=== PATIENT | female | born 1960 | race Two or more races ===

== ENCOUNTER 2023-07-16 06:55 | Day surgery (SDC) | payer MEDICAID ==
[~2023-07-16] VITALS: Ht 177.8 cm; Wt 87.5 kg
[2023-07-16] VITALS (9 sets, daily range): BP systolic 120–165; BP diastolic 84–102; PULSE 51–59; RESP 14–18; TEMP 97.8; O2SAT 91–95
[~2023-07-16 06:55] MED LIST: DIPH50CA31 PO; FOLI-119 PO; MAGN400T40 PO; METO-158 PO; NALT50TA27 PO
[2023-07-16] MEDS ORDERED: SODIUM CHL 0.9% 50 ML ONE ×2 (07:34→09:09)
[2023-07-16] MEDS ORDERED: VERAPAMIL 2.5MG/ML INJ 2ML VIAL IV ONE (07:34)
[2023-07-16] MEDS ORDERED: LIDOCAINE 2%HCL (LOCAL ANESTH.) INJ 20ML MDV ONE (07:34)
[2023-07-16] MEDS ORDERED: ANGIOMAX 250 MG VIAL IV ONE ×2 (07:34→09:09)
[2023-07-16] MEDS ORDERED: MIDAZOLAM HCL 2MG/2ML 2ml VIAL (1mg/ml) ONE (07:34)
[2023-07-16] MEDS ORDERED: fentaNYL CITRATE 100 MCG/2 ML VL ONE (07:34)
[2023-07-16] MEDS ORDERED: IODIXANOL 320MG/ML 100ML BTL IV ONE (08:22)
[2023-07-16] MEDS ORDERED: HEPARIN SODIUM (PORCINE) 5000 UNITS/ML 1ML VIAL ONE (09:15)
== END 2023-07-16 11:58 | disposition home or self-care (01) ==
LOC: CATH 06:55
PROVIDERS: ATTEND Internal Medicine Cardiovascular Disease
DX: R94.39 Abnormal result of other cardiovascular function study (principal); I25.10 Atherosclerotic heart disease of native coronary artery without angina pectoris; R06.02 Shortness of breath; F41.9 Anxiety disorder, unspecified; F32.9 Major depressive disorder, single episode, unspecified; I10 Essential (primary) hypertension; E03.9 Hypothyroidism, unspecified; Z87.891 Personal history of nicotine dependence; Z98.890 Other specified postprocedural states; Z79.899 Other long term (current) drug therapy; I77.1 Stricture of artery
CPT/HCPCS: 93458; C1725; C1769; C1894; J0583; J1644; J2250; J3010; J7030; Q9967; 99152

== ENCOUNTER 2025-05-02 05:57 | Inpatient (IN) | payer MEDICAID ==
[~2025-05-02] VITALS: Ht 177.8 cm; Wt 98.6 kg
--- NOTE | 2025-05-02 06:26 | ED.PDOC ---
HPI Comments 64 y/o F, with PMHx of HTN presents to the ED for CC of palpitations. Patient states, she has been experiencing palpitations with associated symptoms of shortness of breath x3days. Patient denies chest pain, headache, cough, nausea, vomiting, or headache. No other associated symptoms, modifiers, recent injuries or sick contacts present at this time. Chief Complaint: Palpitations Time Seen by MD: 06:20 Reviewed Notes: Nurses Notes, Medications, Allergies Allergies: Coded Allergies: Acamprosate (Verified Allergy, Severe, 07/16/23) causes welts to patient's skin, per pt Home Meds Reported Medications Diphenhydramine Hcl (BANOPHEN) 50 Mg Cap, 50 MG PO BID for ITCHING, CAP 07/12/23 Naltrexone HCl (Naltrexone Hydrochloride) 50 Mg Tab, 50 MG PO DAILY for ALCOHOLISM, TAB 07/12/23 Folic Acid (Folic Acid) 1 Mg Tab, 0.4 MG PO DAILY for SUPPLEMENT, TAB 07/12/23 Magnesium Oxide (MAGNESIUM OXIDE) 400 Mg Tab, 1 TAB PO DAILY for SUPPLEMENT, #30 TAB 5 Refills 07/12/23 Metoprolol Tartrate (Metoprolol Tartrate) 50 Mg Tab, 50 MG PO BID for HTN for 30 Days, MG 07/12/23 Information Source: Patient Mode of Arrival: Ambulatory Severity: Moderate Timing: Days Duration: Since onset Prehospital treatment: None Onset: At Rest Cardiac Risk Factors: HTN PE Risk Factors: None History of: None Modifying Factors: Nothing Associated Signs and Symptoms: Palpitations Past Medical History PAST MEDICAL HISTORY: HTN Surgical History: Denies all surgeries [employer]OX C[employer]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 History: Denies all 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 Family History Family History: Unknown Social History Smoker: Non-Smoker Alcohol: Denies ETOH Use Drugs: Denies Drug Use Lives In: Home Constitutional: denies: chills, diaphoresis, fatigue, fever, malaise, sweats, weakness, others EENTM: denies: blurred vision, double vision, ear bleeding, ear discharge, ear drainage, ear pain, ear ringing, eye pain, eye redness, hearing loss, mouth pain, mouth swelling, nasal discharge, nose bleeding, nose congestion, nose pain, photophobia, tearing, throat pain, throat swelling, voice changes, others Respiratory: denies: cough, hemoptysis, orthopnea, SOB at rest, shortness of breath, SOB with excertion, stridor, wheezing, others Cardiovascular: reports: palpitations; denies: chest pain, dizzy spells, diaphoresis, Dyspnea on exertion, edema, irregular heart beat, left arm pain, lightheadedness, PND, syncope, others Gastrointestinal: denies: abdomen distended, abdominal pain, blood streaked bowels, constipated, diarrhea, dysphagia, difficulty swallowing, hematemesis, melena, nausea, poor appetite, poor fluid intake, rectal bleeding, rectal pain, vomiting, others Genitourinary: denies: abnormal vagina bleeding, burning, dyspareunia, dysuria, flank pain, frequency, hematuria, incontinence, pain, , vagina d ischarge, urgency, others Neurological: denies: dizziness, fainting, headache, left sided numbness, left sided weakness, numbness, paresthesia, pre-existing deficit, right sided numbness, right sided weakness, seizure, speech problems, tingling, tremors, weakness, others Musculoskeletal: denies: back pain, gout, joint pain, joint swelling, muscle pain, muscle stiffness, neck pain, others Integumetry: denies: bruises, change in color, change in hair/nails, dryness, laceration, lesions, lumps, rash, wounds, others Allergic/Immunocompromised: denies: Difficulty Healing, Frequent Infections, Hives, Itching, others Hematologic/Lymphatic: denies: anemia, blood clots, easy bleeding, easy bruising, swollen glands, others Endocrine: denies: excessive hunger, excessive sweating, excessive thirst, excessive urination, flushing, intolerance to cold, intolerance to heat, unexplained weight gain, unexplained weight loss, others Psychiatric: denies: anxiety, bipolar disorder, depression, hopeless, panic disorder, schizophrenia, sleepless, suicidal, others All Other Systems: Reviewed and Negative Physical Exam General Appearance: Moderate Distress, Obese HEENT: Normal ENT Inspection, Pharynx Normal, TMs Normal Neck: Full Range of Motion, Non-Tender, Normal, Normal Inspection Respiratory: Chest Non-Tender, Lungs Clear, No Accessory Muscle Use, No Respiratory Distress, Normal Breath Sounds Cardiovascular: No Edema, No JVD, No Murmur, No Gallop, Normal Peripheral Pulses, Regular Rate/Rhythm Breast Exam: Deferred Gastrointestinal: No Organomegaly, Non Tender, No Pulsatile Mass, Normal Bowel Sounds, Soft Genitalia: Deferred Pelvic: Deferred Rectal: Deferred Extremities: No calf tenderness, Normal capillary refill, Normal inspection, Normal range of motion, Non-tender, No pedal edema Musculoskeletal : Apperance: Normal Neurologic: Alert, managed care director II-XII nml as Tested, No Motor Deficits, Normal Affect, Normal Mood, No Sensory Deficits Cerebellar Function: Normal Reflexes: Normal Skin: Dry, Normal Color, Warm Peripheral Pulses: 3+ Radial (R), 3+ Radial (L) Lymphatic: No Adenopathy Was a procedure done? Was a procedure done?: No CP Differential Dx Differential Diagnosis: A-fib, A-Flutter, Angina, Anxiety / Panic Attack, Atrial Dysrhythmia, Electrolyte Disorder, Sinus Tachycardia Differential Diagnosis: HTN Essential, HTN Accelerated X-Ray, Labs, Meds, VS Vital Signs Date Time Temp Pulse Resp B/P (MAP) Pulse Ox O2 Delivery O2 Flow Rate FiO2 05/02/25 07:17 98 05/02/25 06:14 109 05/02/25 06:02 127 05/02/25 06:02 98.0 127 14 128/95 (106) 93 98.0 Lab Test 05/02/25 06:44 Range/Units White Blood Count 9.6 4.4-10.8 10^3/uL Red Blood Count 4.46 4.0-5.20 10^6/uL Hemoglobin 16.3 H 12.2-16.2 g/dL Hematocrit 45.3 36.0-46.0 % Mean Corpuscular Volume 101.7 H 80.0-100.0 fL Mean Corpuscular Hemoglobin 36.5 H 28.0-32.0 pg Mean Corpuscular Hemoglobin Concent 35.9 32.0-36.0 g/dL Red Cell Distribution Width 13.9 11.8-14.3 % Platelet Count 326 140-450 10^3/uL Mean Platelet Volume 7.2 6.9-10.8 fL Neutrophils (%) (Auto) 74.7 37.0-80.0 % Lymphocytes (%) (Auto) 16.3 10.0-50.0 % Monocytes (%) (Auto) 6.1 0.0-12.0 % Eosinophils (%) (Auto) 2.4 0.0-7.0 % Basophils (%) (Auto) 0.5 0.0-2.0 % Neutrophils # (Auto) 7.2 1.6-8.6 10 ^3/uL Lymphocytes # (Auto) 1.6 0.4-5.4 10 ^3/uL Monocytes # (Auto) 0.6 0-1.3 10 ^3/uL Eosinophils # (Auto) 0.2 0-0.8 10 ^3/uL Basophils # (Auto) 0 0-0.2 10 ^3/uL Nucleated Red Blood Cells 0.0 % Sodium Level 132 L 136-145 mmol/L Potassium Level 3.1 L 3.5-5.1 mmol/L Chloride Level 93 L 98-107 mmol/L Carbon Dioxide Level 24 20-31 mmol/L Anion Gap 15 5-15 Blood Urea Nitrogen 12 9-23 mg/dL Creatinine 0.92 0.550-1.02 mg/dL Glomerular Filtration Rate Calc 70 >90 mL/min BUN/Creatinine Ratio 13.0 10.0-20.0 Serum Glucose 122 H 74-106 mg/dL Calcium Level 10.8 H 8.7-10.4 mg/dL Troponin I High Sensitivity 3 L </=34 ng/L Patient alert. Tachycardia. Has history of chest pain. Last time they did the angiogram they did not place a stent. EKG reviewed does show sinus tachycardia. Was given aspirin. Was given nitro. Reviewed her previous visit. Explained to the patient. Continue monitoring. [place] [address] Ph: [phone] DIAGNOSTIC IMAGING Diagnostic Imaging Report : [id number] Signed PATIENT: ILIANA ZUNIGA ACCT: [id number] UNIT: [id number] : 1960 LOC: ER ROOM / BED: / AGE / SEX: 64 / F ADM STATUS: REG ER SERVICE 0630 ORDERING PHYSICIAN: EZ JURADO MD PROCEDURE(s): CXRP - CHEST PORTABLE REASON: sob ORDER NUMBER(s): [id number], ACCESSION NUMBER(s): [id number] INDICATION: sob TECHNIQUE: Frontal view of the chest. COMPARISON: None FINDINGS: . The heart and mediastinal contours are grossly unremarkable. There is no evidence of pleural disease. The lungs are clear. The bony structures of the chest are intact without fracture. IMPRESSION: 1. No evidence of acute disease. ATED BY: CHAPINCITO IQBAL MD DICTATED DATE/TIME: 05/02/25713 SIGNED BY: CHAPINCITO IQBAL MD SIGNED DATE/TIME: 05/02/25713 CC: Time of 1ST Reevaluation: 06:50 Reevaluation 1ST: Unchanged Patient Education/Counseling: Diagnosis, Treatment Family Education/Counseling: No Family Present SEPSIS Sepsis Screen Date sepsis recognized/suspect: May 02, 2025 Time Sepsis recognized/suspect: 556 Recent Procedure: No On Antibiotic Therapy: No Respiratory Rate >20: No Heart Rate >90: Yes Temp<36 C (96.8 F) or >38.3 C: No SBP <90 or MAP <65 mmHG: No New Acute Mental Status Change: No Is the patient on CPAP, BIPAP,: No Physician Orders Chest Portable (05/02/25 06:30) Urinalysis (05/02/25 06:30) Troponin-I Hs (05/02/25 07:30) Troponin-I Hs (05/02/25 09:30) Electrocardigram (05/02/25 07:38) Electrocardigram (05/02/25 09:38) Vital Signs Date Time Temp Pulse Resp B/P (MAP) Pulse Ox O2 Delivery O2 Flow Rate FiO2 05/02/25 07:17 98 05/02/25 06:14 109 05/02/25 06:02 127 05/02/25 06:02 98.0 127 14 128/95 (106) 93 98.0 Laboratory Tests Test 05/02/25 06:44 White Blood Count 9.6 10^3/uL (4.4-10.8) Departure 1 Departure Time of Disposition: 06:43 Impression: Primary Impression: Chest pain of unknown etiology Additional Impression: Sinus tachycardia Disposition: ADMITTED INPATIENT Admit to: Med Surg Condition: Guarded Critical Care Note Critical Care Time?: Yes (90 min-critical care time only) Critical care comment: Tachycardia Stability Stability form required: No Heart Score Heart Score: Heart Score Response (Comments) Value History Slightly Suspicious 0 EKG Normal 0 Age 45-64 1 Risk Factors 1 or 2 risk factors 1 Troponin Normal limit 0 Total 2 I personally scribed for EZ JURADO MD ([email or web address]) on 05/02/25 at 06:26. Electronically submitted by Amber Padgett ([email or web address]). I personally scribed for EZ JURADO MD ([email or web address]) on 05/02/25 at 07:32. Electronically submitted by Amber Padgett [email or web address]). EZ JURADO MD May 02, 2025 06:26
[2025-05-02 07:15] LABS: Hematocrit 45.3 % (36.0-46.0); Hemoglobin 16.3 g/dL (12.2-16.2); Mean Corpuscular Hemoglobin 36.5 pg (28.0-32.0); Mean Corpuscular Volume 101.7 fL (80.0-100.0); Nucleated Red Blood Cells % 0.0 %
--- NOTE | 2025-05-02 07:16 | DVH ---
INDICATION: sob TECHNIQUE: Frontal view of the chest. COMPARISON: None FINDINGS: . The heart and mediastinal contours are grossly unremarkable. There is no evidence of pleural disea se. The lungs are clear. The bony structures of the chest are intact without fracture. IMPRESSION: 1. No evidence of acute disease.
[2025-05-02 07:17] LABS: Anion Gap 15 (5-15); Carbon Dioxide 24 mmol/L (20-31)
--- NOTE | 2025-05-02 07:19 | ECG ---
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
[2025-05-02 07:23] LABS: BUN/Creatinine Ratio 13.0 (10.0-20.0); Blood Urea Nitrogen 12 mg/dL (9-23)
[2025-05-02 07:29] LABS: Calcium 10.8 mg/dL (8.7-10.4); Chloride 93 mmol/L (98-107); Glucose 122 mg/dL (74-106); Potassium 3.1 mmol/L (3.5-5.1); Sodium 132 mmol/L (136-145)
[2025-05-02 08:47] LABS: Urine Protein, UAD TRACE (Negative)
[2025-05-02] MEDS: ATORVASTATIN 20 MG TAB PO ONE (10:00)
[2025-05-02] MEDS ORDERED: MORPHINE SULFATE 4 MG/ML SYR/VIAL IV PRN (10:00)
[2025-05-02] MEDS ORDERED: NITROGLYCERIN 0.4 MG SL TAB SL PRN ×2 (10:00)
--- NOTE | 2025-05-02 10:17 | DVHHP2 ---
History of Present Illness Reason for Visit: Palpitations History of Present Illness 64-year-old female past medical history hypertension thyroid disease cardiac catheterization 2-3 years ago it was unremarkable by Dr. Yonis cardenas chief complaint patient comes in state she took her blood pressure every morning since April 30, 2025 she states her blood pressure was fine but she noticed that he stated the heart rate started he increased his started at 1:06 a.m. and in the heart rate was 112. She called the [facility] hotline and they referred her to the ER for evaluation. Patient currently without chest pain she does state she has a difficulty taking in the breath and decreased energy. On my exam patient states no palpitation but she does have mild shortness of the breath when evaluating patient's labs and imaging in ED CBC was unremarkable sodium was found to be 132 potassium was 3.1 glucose was 122 otherwise CMP was unremarkable chest x-ray was unremarkable troponin was negative. Patient states she does drink every evening a glass of vodka with some kind of sweetener she does smoke also by history with these findings we will admit patient ask for Cardiology consult Past Medical History See HPI above Past Surgical History See HPI above Family History Reviewed, non-contributory to the management of this case. Past Social History Patient does drink vodka daily in the evening was juice along with a smoker denies drug use Review of Systems Constitutional: No: Fever, Chills, Sweats, Weakness, Malaise, Other Eyes: No: Pain, Vision change, Conjunctivae inflammation, Eyelid inflammation, Other, Redness ENT: No: Ear pain, Ear discharge, Nose pain, Nose discharge, Nose congestion, Mouth pain, Mouth swelling, Throat pain, Throat swelling, Other Respiratory: Shortness of breath; No: Cough, Dry, SOB with excertion, Wheezing, Hemoptysis, Pleuritic Pain, Sputum, Wheezing, Other Cardiovascular: Palpitations; No: Chest Pain, Orthopnea, Paroxysmal Noc. Dyspnea, Edema, Lt Headedness, Other Gastrointestinal: No: Nausea, Vomiting, Abdominal Pain, Diarrhea, Constipation, Melena, Hematochezia, Other Genitourinary: No Dysuria, No Frequency, No Incontinence, No Hematuria, No Retention, No Other Musculoskeletal: No: other, neck pain, shoulder pain, arm pain, back pain, hand pain, leg pain, foot pain Skin: No: Rash, Lesions, Jaundice, Bruising, Other Neurological: No: Weakness, Numbness, Incoordination, Change in speech, Confusion, Seizures, Other Allergies: Coded Allergies: Acamprosate (Verified Allergy, Severe, 07/16/23) causes welts to patient's skin, per pt Exam Vital Signs Vital Signs Date Time Temp Pulse Resp B/P (MAP) Pulse Ox O2 Delivery O2 Flow Rate FiO2 05/02/25 09:48 98.2 101 16 105/96 (99) 97 98.2 05/02/25 07:35 Room Air General Appearance: Alert, Oriented X3, Cooperative, No acute distress HEENT: Atraumatic, PERRLA, EOMI, Mucous membr. moist/pink Respiratory: Clear to auscultation, Normal air movement Cardiovascular: Regular rate, Normal S1, Normal S2, No murmurs Abdominal: Normal bowel sounds, Soft, No tenderness, No hepatospenomegaly, No masses Extremities: No clubbing, No cyanosis, No edema, Normal pulses, No tenderness/swelling Skin: No rashes, No breakdown, No significant lesion Neuro: Normal gait, Normal speech, Strength at 5/5 X4 ext, Sensation intact, Cranial nerves 3-12 NL Psych/Mental Status: Mental status NL, Mood NL Labs/Xrays Chest x-ray unremarkable I reviewed labs, imaging CT scan abdomen pelvis, EKG and all diagnostic studies on this patient from ED records and the medical chart Labs Test 05/02/25 07:46 05/02/25 06:44 05/02/25 06:30 Range/Units Troponin I High Sensitivity 3 L </=34 ng/L White Blood Count 9.6 4.4-10.8 10^3/uL Red Blood Count 4.46 4.0-5.20 10^6/uL Hemoglobin 16.3 H 12.2-16.2 g/dL Hematocrit 45.3 36.0-46.0 % Mean Corpuscular Volume 101.7 H 80.0-100.0 fL Mean Corpuscular Hemoglobin 36.5 H 28.0-32.0 pg Mean Corpuscular Hemoglobin Concent 35.9 32.0-36.0 g/dL Red Cell Distribution Width 13.9 11.8-14.3 % Platelet Count 326 140-450 10^3/uL Mean Platelet Volume 7.2 6.9-10.8 fL Neutrophils (%) (Auto) 74.7 37.0-80.0 % Lymphocytes (%) (Auto) 16.3 10.0-50.0 % Monocytes (%) (Auto) 6.1 0.0-12.0 % Eosinophils (%) (Auto) 2.4 0.0-7.0 % Basophils (%) (Auto) 0.5 0.0-2.0 % Neutrophils # (Auto) 7.2 1.6-8.6 10 ^3/uL Lymphocytes # (Auto) 1.6 0.4-5.4 10 ^3/uL Monocytes # (Auto) 0.6 0-1.3 10 ^3/uL Eosinophils # (Auto) 0.2 0-0.8 10 ^3/uL Basophils # (Auto) 0 0-0.2 10 ^3/uL Nucleated Red Blood Cells 0.0 % Sodium Level 132 L 136-145 mmol/L Potassium Level 3.1 L 3.5-5.1 mmol/L Chloride Level 93 L 98-107 mmol/L Carbon Dioxide Level 24 20-31 mmol/L Anion Gap 15 5-15 Blood Urea Nitrogen 12 9-23 mg/dL Creatinine 0.92 0.550-1.02 mg/dL Glomerular Filtration Rate Calc 70 >90 mL/min BUN/Creatinine Ratio 13.0 10.0-20.0 Serum Glucose 122 H 74-106 mg/dL Calcium Level 10.8 H 8.7-10.4 mg/dL Urine Color Yellow Yellow Urine Clarity Hazy H Clear Urine pH 6.0 5.0-9.0 Urine Specific [place] 1.021 1.001-1.035 Urine Protein Trace H Negative Urine Ketones Trace Negative Urine Blood Negative Negative /uL Urine Nitrite Negative Negative Urine Bilirubin Negative Negative Urine Urobilinogen 2 H Negative mg/dL Urine Leukocyte Esterase Trace Negative /uL Urine RBC 1 0 - 4 /hpf Urine Microscopic WBC 5 0-5 /HPF Urine Squamous Epithelial Cells Few <5 /hpf Urine Bacteria Many H None Seen /hpf Urine Glucose Normal Normal mg/dL SEPSIS Sepsis Screen Date sepsis recognized/suspect: May 02, 2025 Time Sepsis recognized/suspect: 05 Recent Procedure: No On Antibiotic Therapy: No Respiratory Rate >20: No Heart Rate >90: Yes Temp<36 C (96.8 F) or >38.3 C: No SBP <90 or MAP <65 mmHG: No New Acute Mental Status Change: No Is the patient on CPAP, BIPAP,: No Physician Orders Chest Portable (05/02/25 06:30) Electrocardigram (05/02/25 07:38) Electrocardigram (05/02/25 09:38) Vital Signs Date Time Temp Pulse Resp B/P (MAP) Pulse Ox O2 Delivery O2 Flow Rate FiO2 05/02/25 09:48 98.2 101 16 105/96 (99) 97 98.2 05/02/25 07:35 97.9 101 16 96/69 (78) 95 97.9 05/02/25 07:35 89 16 98 Room Air 05/02/25 07:17 98 05/02/25 06:14 109 05/02/25 06:02 127 05/02/25 06:02 98.0 127 14 128/95 (106) 93 98.0 Laboratory Tests Test 05/02/25 06:44 White Blood Count 9.6 10^3/uL (4.4-10.8) Medications Medications Dose Ordered Sig/Candy Route Start Time Stop Time Status Last Admin Dose Admin Aspirin 325 mg ONCE ONCE PO 05/02/25 07:45 05/02/25 07:46 DC 05/02/25 07:59 325 MG Assessment/Plan Assessment/Plan Acute palpitations ekg no stemi no rvr on afib ordered mag and phos fu results replete k ordered echo fu results ordered cards consult fu recs pt had a cardiac cath in 07/[address] Peguero it appears to have no acute disease Acute dyspnea without hypoxemia ordered ddimer fu results cxr normal findings ordered bnp ordered trop fu results Acute hypokalemia repleted ordered mag and phos fu results Acute alcohol abuse pt does drinking every evening monitor for etoh withdrawal ciwa protocol Tobacco dependence I counseld the patient for 6 min about smoking suggestions did offer nicotine patch but patient declined patch and tobacco education smoking code 12702 fen/ppx diet hl scd no gi ppx since no hx of gerds or gi bleed plan admit to tele Plan discussed with: Patient Date of Service: May 02, 2025 Billing Provider: EARL BELTRAN DNP Common Visit Codes: [id number] INP/OBS CARE (HIGH) EARL BELTRAN DNP May 02, 2025 10:17
[2025-05-02 10:57] LABS: Magnesium 1.3 mg/dL (1.6-2.6)
[2025-05-02] MEDS: POTASSIUM EFFERVESENT TAB 25 MEQ PO ONE (11:00)
[2025-05-02 11:30] VITALS: BP 99/72; PULSE 74; RESP 21; TEMP 96.8; O2SAT 93
[2025-05-02] MEDS ORDERED: ALLO100T PO (12:12)
[2025-05-02] MEDS ORDERED: PAR20T PO (12:13)
[2025-05-02] MEDS ORDERED: HYDR25TA5 PO (12:14)
[2025-05-02] MEDS ORDERED: LISI40TA16 PO (12:14)
[2025-05-02] MEDS ORDERED: AMLO1TAB22 PO (12:15)
[2025-05-02] MEDS ORDERED: HYDR25TA4 PO (12:15)
[2025-05-02] MEDS ORDERED: LEVO50TA7 PO (12:16)
[2025-05-02] MEDS ORDERED: ASPI325T6 PO (12:16)
[2025-05-02] MEDS ORDERED: CALC667C PO (12:19)
[2025-05-02] MEDS ORDERED: SACC1CAP3 PO (12:21)
[2025-05-02] MEDS ORDERED: POTA-36 PO (12:22)
[2025-05-02] MEDS ORDERED: CYA100I PO (12:22)
[2025-05-02] MEDS ORDERED: NICO4GUM MT (12:23)
[2025-05-02 12:39] VITALS: BP 104/75; PULSE 95; RESP 18; TEMP 98.2; O2SAT 98
[2025-05-02 12:50] VITALS: BP 103/75; PULSE 75; RESP 19; TEMP 96.8; O2SAT 93
[2025-05-02 16:46] VITALS: BP 119/72; PULSE 83; RESP 20; TEMP 98.9; O2SAT 94
[2025-05-02 20:00] VITALS: PULSE 81; RESP 17; O2SAT 97
[2025-05-02 21:00] VITALS: BP 105/77; PULSE 81; RESP 17; TEMP 98.4; O2SAT 93
[2025-05-02] MEDS: METOPROLOL TARTRATE 50 MG TAB PO SCH (21:32)
[2025-05-02] MEDS: ACETAMINOPHEN 325 MG TAB PO PRN (21:38)
[2025-05-03] VITALS (8 sets, daily range): BP systolic 99–130; BP diastolic 65–90; PULSE 63–79; RESP 16–18; TEMP 97.6–98.6; O2SAT 92–96
[2025-05-03 07:12] LABS: Hematocrit 43.5 % (36.0-46.0); Hemoglobin 14.8 g/dL (12.2-16.2); Mean Corpuscular Hemoglobin 35.4 pg (28.0-32.0); Mean Corpuscular Volume 104.2 fL (80.0-100.0); Nucleated Red Blood Cells % 0.2 %
[2025-05-03 07:31] LABS: Alkaline Phosphatase 110 U/L (46-116); Anion Gap 12 (5-15); BUN/Creatinine Ratio 10.3 (10.0-20.0); Calcium 9.8 mg/dL (8.7-10.4); Carbon Dioxide 26 mmol/L (20-31); Glucose 102 mg/dL (74-106); Total Protein 6.7 g/dL (5.7-8.2)
[2025-05-03 07:32] LABS: Alanine Aminotransferase 71 U/L (7-40); Albumin 4.4 g/dL (3.2-4.8); Bilirubin, Total 1.3 mg/dL (0.2-1.0); Blood Urea Nitrogen 7 mg/dL (9-23); Chloride 94 mmol/L (98-107); Potassium 3.1 mmol/L (3.5-5.1); Sodium 132 mmol/L (136-145)
--- NOTE | 2025-05-03 09:02 | DVHSR ---
APPROVED REPORT EXAM: Two-dimensional and M-mode echocardiogram with Doppler and color Doppler. Blood Pressure: 105/96 mmHg INDICATION Eval for cardiac finction and ef RISK FACTORS Obesity: Height: 5'10", Weight: 216 DIMENSIONS LVDd4.2 (3.8-5.7cm)LA (2D)3.4 (1.9-4.0cm)Aortic Root4.0 (2.0-3.7cm) LVDs2.8 (2.5-4.0cm)LA (MM) (1.9-4.0cm)Aortic Cusp Exc2.2 (1.5-2.0cm) EF (%) 60.0 (55-70%)Rt. Atrium3.9 (1.9-4.0cm)Asc. Aorta cm IVSd1.4 (0.7-1.1cm)RV (D) (1.8-2.4cm) PWd1.4 (0.7-1.1cm) Mitral Valve MitralMitral Stenosis E wave0.45m/sMV Mean GR.mmHg A wave0.57m/sMV Peak GR.mmHg E/A ratio0.82D MVAcm2 DECEL [id number] 1/2 [place] Aortic Valve Aortic ValveAortic Stenosis V10.97m/[place] Mean GR.4mmHg V21.25m/[place] Peak GR.6mmHg LVOT Diameter2.4 (1.8-2.4cm)Doppler AVA3.51cm2 Pulmonic Valve V20.70m/s Tricuspid Valve TR Velocity2.43m/s [id number] Other Information Technically limited study due to body habitus. Conclusion Left ventricle: Concentric left ventricular hypertrophy was seen. LVEF was around 65%. Paradoxical septal motion was observed. Diastolic function was considered normal for age. Right ventricle was normal-sized with normal systolic function. Both atria were normal-sized. Aortic valve: Aortic valve was trileaflet. There was no aortic insufficiency/stenosis. There was tr perlita mitral/tricuspid regurgitation. There was trace pulmonary valve insufficiency. Right ventricular systolic pressure was assessed at 27 mm Hg which is considered normal. IVC was normal-sized with normal respiratory variation. There was trace pericardial effusion.
[2025-05-03] MEDS ORDERED: OMNIPAQUE 12mg/ml 500ml ORAL SOLUTION PO ONE (09:55)
--- NOTE | 2025-05-03 09:58 | DVHINCON2 ---
Date of service: May 03, 2025 History of Present Illness HPI Patient is a 64-year-old female who presented with few days of low energy/mild palpitations and occasional shortness of breath. She also has been experiencing more shortness of breath while lying down. Denies any recent chest pains. She did talk to her insurance company and decided to come to the hospital for further evaluation. Patient is known to our practice from outside. Cardiology is involved for cardiac aspects of care. It is of note that the patient does have history of SVT/NSVTs. She also is known to have alcohol problem. Left heart catheterization of July 2023 revealed nonobstructive coronary artery disease, preserved left ventricular systolic function and mildly increased LVEDP. Home Meds Reported Medications Nicotine Polacrilex (Nicotine Polacrilex) 4 Mg Gum, 4 MG MT, GUM 05/02/25 Potassium Chloride (POTASSIUM CHLORIDE CR) 10 Meq Tb, 99 MG PO DAILY, TAB 05/02/25 Vitamin B12 (Vitamin B-12) 1,000 Mcg/1 Ml Ij, 1000 MCG PO, INJ 05/02/25 Yeast (S. Boulardii)(S. Cerevi (Probiotic) 250 Mg Cap, 250 MG PO, CAP 05/02/25 Calcium Acetate (Phosphate Bin (Calcium Acetate) 667 Mg Cap, 600 MG PO DAILY for 30 Days, MG 05/02/25 Levothyroxine Sodium (Levothyroxine Sodium) 50 Mcg Tab, 50 MCG PO DAILY, TAB 05/02/25 Aspirin (Aspirin) 325 Mg Tab, 81 MG PO DAILY for 30 Days, MG 05/02/25 Amlodipine Besylate (Amlodipine Besylate) 5 Mg Tab, 10 MG PO DAILY for 30 Days, MG 05/02/25 Hydrochlorothiazide (Hydrochlorothiazide) 25 Mg Tab, 50 MG PO DAILY for 30 Days, MG 05/02/25 Hctz (Hydrochlorothiazide) 25 Mg Tab, 50 MG PO, TAB 05/02/25 Lisinopril (Lisinopril) 40 Mg Tab, 40 MG PO DAILY for 30 Days, MG 05/02/25 Paroxetine (PAXIL TABLET) 20 Mg Tb, 40 MG PO DAILY, TAB 05/02/25 Allopurinol (Allopurinol) 100 Mg Tab, 100 MG PO BID for 30 Days, MG 05/02/25 Diphenhydramine Hcl (BANOPHEN) 50 Mg Cap, 50 MG PO BID for ITCHING, CAP 07/12/23 Naltrexone HCl (Naltrexone Hydrochloride) 50 Mg Tab, 50 MG PO DAILY for ALCOHOLISM, TAB 07/12/23 Folic Acid (Folic Acid) 1 Mg Tab, 0.4 MG PO DAILY for SUPPLEMENT, TAB 07/12/23 Magnesium Oxide (MAGNESIUM OXIDE) 400 Mg Tab, 1 TAB PO DAILY for SUPPLEMENT, #30 TAB 5 Refills 07/12/23 Metoprolol Tartrate (Metoprolol Tartrate) 50 Mg Tab, 50 MG PO BID for HTN for 30 Days, MG 07/12/23 Discontinued Reported Medications Calcium Acetate (Phosphate Bin (Calcium Acetate) 667 Mg Cap, 600 MG PO DAILY for 30 Days, MG 05/02/25 Past Medical History Others Past medical history includes obesity, hypertension, hypothyroidism, osteoarthritis of bilateral knees, gout, anxiety and depression, history of SVT/NSVT, known history of adrenal nodule and also history of ascending aortic ectasia. She smokes cigarettes and drinks vodka (half a pint) daily Patient Family History: Arthritis G8 MOTHER Hypertension G8 MOTHER Smoker: Positive Alocohol: Moderate Drugs: None Domestic Violence: Neg Review of Systems Constitutional: Malaise, Weakness Ears, Nose, & Throat: No symptom reported Eyes: No symptom reported Pulmonary/Respiratory: Dyspnea Cardiovascular: Palpitations All Other Systems Fourteen point review of system was performed. Relevant findings as per above and as per HPI. Otherwise negative. H&P Exam Vital Signs Vital Signs Date Time Temp Pulse Resp B/P (MAP) Pulse Ox O2 Delivery O2 Flow Rate FiO2 05/03/25 09:28 63 99/68 05/03/25 08:53 98.2 18 94 98.2 05/02/25 20:00 Room Air* 0 21 General Appeara: Well developed, Obese Head Exam: Normal inspection Neck Exam: Normal inspection Eye Exam: bilateral eye PERRL Mouth: Normal Inspection Pulmonary/Respiratory: Lungs clear Cardiovascular/Chest: Regular rate Peripheral Pulses: 2+ carotid (R), 2+ carotid (L), 2+ femoral (R), 2+ femoral (L), 2+ dorsalis pedis (R), 2+ dorsalis pedis (L), 2+ Radial (R), 2+ Radial (L) Abdominal Exam: Normal bowel sounds, Soft Neuro/Mental St: Alert, Oriented Appearance: Appropriate appearance Eye contact/ Speech: Cooperative Labs/Xrays Labs Test 05/03/25 05:50 05/02/25 10:35 05/02/25 06:44 05/02/25 06:30 Range/Units White Blood Count 6.8 # 4.4-10.8 10^3/uL Red Blood Count 4.18 4.0-5.20 10^6/uL Hemoglobin 14.8 12.2-16.2 g/dL Hematocrit 43.5 36.0-46.0 % Mean Corpuscular Volume 104.2 H 80.0-100.0 fL Mean Corpuscular Hemoglobin 35.4 H 28.0-32.0 pg Mean Corpuscular Hemoglobin Concent 34.0 32.0-36.0 g/dL Red Cell Distribution Width 14.1 11.8-14.3 % Platelet Count 293 140-450 10^3/uL Mean Platelet Volume 7.0 6.9-10.8 fL Neutrophils (%) (Auto) 65.2 37.0-80.0 % Lymphocytes (%) (Auto) 23.1 10.0-50.0 % Monocytes (%) (Auto) 6.2 0.0-12.0 % Eosinophils (%) (Auto) 4.8 0.0-7.0 % Basophils (%) (Auto) 0.7 0.0-2.0 % Neutrophils # (Auto) 4.4 1.6-8.6 10 ^3/uL Lymphocytes # (Auto) 1.6 0.4-5.4 10 ^3/uL Monocytes # (Auto) 0.4 0-1.3 10 ^3/uL Eosinophils # (Auto) 0.3 0-0.8 10 ^3/uL Basophils # (Auto) 0.1 0-0.2 10 ^3/uL Nucleated Red Blood Cells 0.2 % Sodium Level 132 L 136-145 mmol/L Potassium Level 3.1 L 3.5-5.1 mmol/L Chloride Level 94 L 98-107 mmol/L Carbon Dioxide Level 26 20-31 mmol/L Anion Gap 12 5-15 Blood Urea Nitrogen 7 L 9-23 mg/dL Creatinine 0.68 0.550-1.02 mg/dL Glomerular Filtration Rate Calc 97 >90 mL/min BUN/Creatinine Ratio 10.3 10.0-20.0 Serum Glucose 102 74-106 mg/dL Calcium Level 9.8 8.7-10.4 mg/dL Total Bilirubin 1.3 H 0.2-1.0 mg/dL Aspartate Amino Transferase (AST) 107 H 13-40 U/L Alanine Aminotransferase (ALT) 71 H 7-40 U/L Alkaline Phosphatase 110 46-116 U/L Total Protein 6.7 5.7-8.2 g/dL Albumin 4.4 3.2-4.8 g/dL Troponin I High Sensitivity 3 L </=34 ng/L D-Dimer, Quantitative 0.27 0.0-0.49 mg/L FEU Phosphorus Level 4.0 2.4-5.1 mg/dL Magnesium Level 1.3 L 1.6-2.6 mg/dL B-Type Natriuretic Peptide 24.13 0-100 pg/mL Thyroid Stimulating Hormone (TSH) 3.08 0.55-4.78 uIU/mL Urine Color Yellow Yellow Urine Clarity Hazy H Clear Urine pH 6.0 5.0-9.0 Urine Specific [place] 1.021 1.001-1.035 Urine Protein Trace H Negative Urine Ketones Trace Negative Urine Blood Negative Negative /uL Urine Nitrite Negative Negative Urine Bilirubin Negative Negative Urine Urobilinogen 2 H Negative mg/dL Urine Leukocyte Esterase Trace Negative /uL Urine RBC 1 0 - 4 /hpf Urine Microscopic WBC 5 0-5 /HPF Urine Squamous Epithelial Cells Few <5 /hpf Urine Bacteria Many H None Seen /hpf Urine Glucose Normal Normal mg/dL Assessment/Plan Plan Patient is a 64-year-old female who presented with few days of low energy/mild palpitations and occasional shortness of breath. She also has been experiencing more shortness of breath while lying down. Denies any recent chest pains. She did talk to her insurance company and decided to come to the hospital for further evaluation. Patient is known to our practice from outside. Cardiology is involved for cardiac aspects of care. It is of note that the patient does have history of SVT/NSVTs. She also is known to have alcohol problem. Left heart catheterization of July 2023 revealed nonobstructive coronary artery disease, preserved left ventricular systolic function and mildly increased LVEDP. Obese patient, not in acute distress. Mucosa is pink and wet. No carotid brui t. Lungs are clear to auscultation. Not using accessory muscles of breathing. Cardiac: Regular, no thrill/gallop. Abdomen is obese. Abdomen is soft. Bowel sound is positive. There is no gross mass. Extremities reveal 1+ edema bilaterally. Dorsalis pedis is 2+ bilateral. Past medical history includes obesity, hypertension, hypothyroidism, osteoarthritis of bilateral knees, gout, anxiety and depression, history of SVT/NSVT, known history of adrenal nodule and also history of ascending aortic ectasia. She smokes cigarettes and drinks vodka (half a pint) daily Echocardiogram of March 24, 2024 (performed in the office) revealed ejection fraction of 60-65%, mild concentric left ventricular hypertrophy, mild biatrial enlargement, trace TR/PI, ascending aorta of 4.1 cm. Right ventricular systolic pressure was 42 mm Hg. Left heart catheterization of July 16, 2023 revealed nonobstructive coronary artery disease. Ejection fraction was 55% and LVEDP was 19 mm Hg. Sodium: 132 - 132 Potassium: 3.1 - 3.1 Magnesium: 1.3 Calcium: 10.8 - 9.8 Creatinine: 0.92 Troponin (high sensitive): 3 - 3 - 3 BNP: 24.13 TSH: 3.08 AST/ALT: 107/71 D-dimer: 0.27 (within normal limits) Chest x-ray revealed: IMPRESSION: 1. No evidence of acute disease. EKG reveals sinus rhythm with no ST-T changes Echocardiogram revealed: Left ventricle: Concentric left ventricular hypertrophy was seen. LVEF was around 65%. Paradoxical septal motion was observed. Diastolic function was considered normal for age. Right ventricle was normal-sized with normal systolic function. Both atria were normal-sized. Aortic valve: Aortic valve was trileaflet. There was no aortic insufficiency/stenosis. There was trace mitral/tricuspid regurgitation. There was trace pulmonary valve insufficiency. Right ventricular systolic pressure was assessed at 27 mm Hg which is considered normal. IVC was normal-sized with normal respiratory variation. There was trace pericardial effusion. Patient is a 64-year-old female with low energy/palpitations and shortness of breath for few days. Was found to have sinus tachycardia on arrival. Serial high sensitive troponin has been negative. Acute coronary syndrome is not considered. BNP and echocardiogram findings are against any heart failure. Patient is found to have different electrolyte abnormalities and mild abnormal LFT. Does have baseline alcohol abuse which could have contributed to the clinical picture. It is of note that she also has history of adrenal nodule. Generalized weakness Palpitation History of SVT/NSVT Obesity, morbid Alcohol abuse Hypothyroidism, history of Adrenal Nodule Gout, Hyponatremia Hypokalemia Abnormal LFT Cardiac suggestion for management: Manage on telemetry Follow-up electrolytes and kidney function tests and correct abnormalities. Keep potassium above 4 and magnesium above 2 Potassium and magnesium supplementation Consider urine for drug screen Imaging (CT scan) of the abdomen is suggested Rule out alcohol withdrawal (history of alcohol abuse). Lifestyle and risk factor modification is advised. Patient was advised to stop drinking alcohol Further evaluation and management depends on the above and clinical course Thank you for consultation A total of 75 minutes was spent reviewing the patient record, examining the patient, making a diagnostic and therapeutic plan, discussing this plan with medical personnel, following up on diagnostic studies and following the patient for clinical stability excluding any and all procedures. At least 50% of this time was spent in direct, [id number] contact. Thank you for allowing me to participate in this patient's care. Further recommendations will depend on patient's clinical course. Please do not hesitate to contact me if you have any questions or concerns. This medical document was created using electronic medical record system with [employer] computerized dictation system. Although this document has been carefully reviewed, there may still be some phonetic and typographical errors. These areas are purely typographical due to the imperfection of the software programs, and do not reflect any compromise in the patient's medical care. Plan discussed with: Patient, Other (nurse) USAMA LOREDO MD May 03, 2025 09:58
--- NOTE | 2025-05-03 11:28 | DVHPN2 ---
Progress Note Date Seen: May 03, 2025 Medical Necessity Reason Pt with a Central, PICC or Fol: No Subjective Patient reports: No new complaints Review of Systems: HEENT:Normal, CVS:Normal, RESPIRATORY:Normal, GI:Normal, :Normal, MSK:Normal, NEURO:Normal Objective vital signs Vital Sign Date Time Temp Pulse Resp B/P (MAP) Pulse Ox O2 Delivery O2 Flow Rate FiO2 05/03/25 09:28 63 99/68 05/03/25 08:53 98.2 18 94 98.2 05/03/25 08:00 Room Air* 0 21 Total Intake and Output 05/02/25 05/02/25 05/03/25 15:00 23:00 07:00 Intake Total 650 ml 640 ml Balance 650 ml 640 ml medications Current Medications Medications Dose Ordered Sig/Candy Route Start Time Stop Time Status Last Admin Dose Admin Aspirin 81 mg DAILY PO 05/02/25 10:00 05/03/25 09:22 81 MG Morphine Sulfate 2 mg Q30MP PRN IV 05/02/25 10:00 Acetaminophen 325 mg Q4HP PRN PO 05/02/25 10:00 05/02/25 21:38 325 MG Nitroglycerin 0.4 mg Q5MINP PRN SL 05/02/25 10:00 Metoprolol Tartrate 50 mg BID PO 05/02/25 22:00 05/02/25 21:32 50 MG Potassium Chloride 100 ml @ 50 mls/hr Q2H IV 05/03/25 09:45 05/03/25 13:44 Magnesium Sulfate/ Dextrose 100 ml @ 100 mls/hr Q1HR IV 05/03/25 10:00 05/03/25 13:59 Examination: GENERAL:Normal, HEENT:Normal, NECK:Normal, LUNGS:Normal, CVS:Normal, ABDOMEN:Normal, MSK:Normal, SKIN:Normal, NEURO:Normal, :Normal laboratory and microbiology Laboratory Tests 05/03/25 05:50 Test 05/03/25 05:50 Range/Units Serum Glucose 102 74-106 mg/dL Problem List/Assessment/Plan Problem List/Assessment/Plan #1 palpitations ?svt: cont meds #2 htn #3 gout #4 tobacco abuse: advised to quit, nicotine lozenges - time spent 11 mins #5 obesity #7 alcohol abuse #8 hypokalemia #9 hypothyroidism #10 transaminitis: ct abd advance care planning- full code- time spent 18 mins Plan discussed with: Patient Date of Service: May 03, 2025 Billing Provider: FREDERICK JIMENEZ MD Common Visit Codes: [id number] INP/OBS CARE(HIGH) Secondary Visit Codes: [id number] CARE PLAN 30 MINUTES FREDERICK JIMENEZ MD May 03, 2025 11:28
[2025-05-03] MEDS: MAGNESIUM SULFATE 1GM/100ML 100 ML IV SCH (12:00)
[2025-05-03] MEDS ORDERED: IOHEXOL 300 MG/ML 100ML BOTTLE IJ ONE (12:32)
--- NOTE | 2025-05-03 12:35 | DVH ---
CT abdomen and pelvis with oral and IV contrast INDICATION: abnormal liver enzymes TECHNIQUE: Following IV administration of 100 mL Omnipaque 300 and oral administration of a 1000 mL O mnipaque Serial axial images were performed through the abdomen and pelvis and then reformatted in th e sagittal and coronal plane. All CT scans at this medical facility are performed using dose modulati on techniques as appropriate to a performed exam including the following: Automated exposure control was utilized; adjustment of the MA and/or KvP according to patient size; and use of iterative reconst ruction technique. FINDINGS: Lung bases are clear . Liver and spleen are normal in size.1 cm cystic lesion in the left lobe of the liver. Multiple stones in the gallbladder. No gallbladder wall thickening or biliary dilatation. No renal masses, stones or hydronephrosis. 1.8 cm nodular densities in each adrenal gland. Pancreas unremarkable. No enlarged retroperitoneal lymph nodes or mesenteric lymph nodes No distention of bowel loops to suggest mechanical obstruction of bowel. The appendix is normal in ap pearance. No free fluid. Within the pelvis, bladder is smooth walled without stones. Small calcified uterine fibroids. No adne xal masses. IMPRESSION: 1. 1 cm cystic lesion left lobe of the liver either a benign cyst or hemangioma 2. Cholelithiasis without signs of cholecystitis or biliary obstruction 3. Small bilateral adrenal nodules. Recommend 6-month follow-up Computed Tomographic Radiation Dosimetry Report: Total CTDI vol = 24 mGy Total DLP = 1357 mGy-cm Low dose protocols were performed.
[2025-05-03 13:33] LABS: Amphetamine Screen, Urine Neg (NEGATIVE); Barbiturate Scree,Urine Neg (NEGATIVE); Benzodiazephine Screen, Urine Neg (NEGATIVE); Cannabinoid Screen, Urine Neg (NEGATIVE); Cocaine Screen, Urine Neg (NEGATIVE); Opiate Scree,Urine Neg (NEGATIVE); Phencyclidine Screen, Urine Neg (NEGATIVE)
[2025-05-03] MEDS: FOLIC ACID 1 MG TAB PO ONE (13:50)
[2025-05-03] MEDS: THIAMINE 100mg/ml INJ (200mg/2ml VIAL) IV ONE (13:51)
[2025-05-03] MEDS: POTASSIUM CHL 20MEQ/100ML 100 ML IV SCH (15:31)
[2025-05-03] MEDS: MAGNESIUM SULFATE 1GM/100ML 200 ML IV ONE (16:57)
[2025-05-03] MEDS: POTASSIUM CHL 20MEQ/100ML 100 ML IV ONE (18:05)
[2025-05-03] MEDS: POTASSIUM CHL 20 Meq TABLET PO ONE (21:38)
[2025-05-04 01:00] VITALS: BP 100/67; PULSE 63; RESP 16; TEMP 98.2; O2SAT 92
[2025-05-04 05:00] VITALS: BP 116/87; PULSE 63; RESP 18; TEMP 97.5; O2SAT 91
[2025-05-04 08:00] VITALS: PULSE 66; PULSE 74; RESP 18; O2SAT 93
[2025-05-04 08:05] LABS: Albumin 4.4 g/dL (3.2-4.8); Anion Gap 10 (5-15); BUN/Creatinine Ratio 10.8 (10.0-20.0); Calcium 9.5 mg/dL (8.7-10.4); Carbon Dioxide 23 mmol/L (20-31); Chloride 100 mmol/L (98-107); Magnesium 2.2 mg/dL (1.6-2.6); Potassium 4.2 mmol/L (3.5-5.1); Total Protein 6.9 g/dL (5.7-8.2)
[2025-05-04 08:07] LABS: Alanine Aminotransferase 116 U/L (7-40); Alkaline Phosphatase 121 U/L (46-116); Bilirubin, Total 1.3 mg/dL (0.2-1.0); Blood Urea Nitrogen 7 mg/dL (9-23); Glucose 110 mg/dL (74-106); Sodium 133 mmol/L (136-145)
--- NOTE | 2025-05-04 08:08 | DVHPN2 ---
Progress Note - Dictate Date Seen: May 04, 2025 Medical Necessity Reason Pt with a Central, PICC or Fol: No vital signs Vital Sign Date Time Temp Pulse Resp B/P (MAP) Pulse Ox O2 Delivery O2 Flow Rate FiO2 05/04/25 05:00 97.5 63 18 116/87 (97) 91 97.5 05/03/25 20:00 Room Air* 0 21 Total Intake and Output 05/03/25 05/03/25 05/04/25 15:00 23:00 07:00 Intake Total 300 ml 2370 ml 425 ml Output Total 500 ml Balance 300 ml 1870 ml 425 ml medications Current Medications Medications Dose Ordered Sig/Candy Route Start Time Stop Time Status Last Admin Dose Admin Aspirin 81 mg DAILY PO 05/02/25 10:00 05/03/25 09:22 81 MG Morphine Sulfate 2 mg Q30MP PRN IV 05/02/25 10:00 Acetaminophen 325 mg Q4HP PRN PO 05/02/25 10:00 05/03/25 20:12 325 MG Nitroglycerin 0.4 mg Q5MINP PRN SL 05/02/25 10:00 Metoprolol Tartrate 50 mg BID PO 05/02/25 22:00 05/03/25 21:38 50 MG Allopurinol 100 mg DAILY PO 05/04/25 10:00 Magnesium Oxide 400 mg DAILY PO 05/04/25 10:00 Thiamine HCl 100 mg DAILY IV 05/04/25 10:00 Folic Acid 1 mg DAILY PO 05/04/25 10:00 laboratory and microbiology Test 05/04/25 06:46 Range/Units Serum Glucose Pending Assessment/Plan Patient is a 64-year-old female who presented with few days of low energy/mild palpitations and occasional shortness of breath. She also has been experiencing more shortness of breath while lying down. Denies any recent chest pains. She did talk to her insurance company and decided to come to the hospital for further evaluation. Patient is known to our practice from outside. Cardiology is involved for cardiac aspects of care. It is of note that the patient does have history of SVT/NSVTs. She also is known to have alcohol problem. Left heart catheterization of July 2023 revealed nonobstructive coronary artery disease, preserved left ventricular systolic function and mildly increased LVEDP. Obese patient, not in acute distress. Mucosa is pink and wet. No carotid bruit. Lungs are clear to auscultation. Not using accessory muscles of breathing. Cardiac: Regular, no thrill/gallop. Abdomen is obese. Abdomen is soft. Bowel sound is positive. There is no gross mass. Extremities reveal 1+ edema bilaterally. Dorsalis pedis is 2+ bilateral. Past medical history includes obesity, hypertension, hypothyroidism, osteoar thritis of bilateral knees, gout, anxiety and depression, history of SVT/NSVT, known history of adrenal nodule and also history of ascending aortic ectasia. She smokes cigarettes and drinks vodka (half a pint) daily Echocardiogram of March 24, 2024 (performed in the office) revealed ejection fraction of 60-65%, mild concentric left ventricular hypertrophy, mild biatrial enlargement, trace TR/PI, ascending aorta of 4.1 cm. Right ventricular systolic pressure was 42 mm Hg. Left heart catheterization of July 16, 2023 revealed nonobstructive coronary artery disease. Ejection fraction was 55% and LVEDP was 19 mm Hg. Sodium: 132 - 132 - 133 Potassium: 3.1 - 3.1 - 4.2 Magnesium: 1.3 - 2.2 Calcium: 10.8 - 9.8 - 9.5 Creatinine: 0.92 - 0.68 - 0.65 Troponin (high sensitive): 3 - 3 - 3 BNP: 24.13 TSH: 3.08 AST/ALT: 107/71 - 155/116 D-dimer: 0.27 (within normal limits) Urine toxicology was non-revealing Chest x-ray revealed: IMPRESSION: 1. No evidence of acute disease. CT of Abdomen and pelvis revealed: IMPRESSION: 1. 1 cm cystic lesion left lobe of the liver either a benign cyst or hemangioma 2. Cholelithiasis without signs of cholecystitis or biliary obstruction 3. Small bilateral adrenal nodules. Rec ommend 6-month follow-up EKG reveals sinus rhythm with no ST-T changes Echocardiogram revealed: Left ventricle: Concentric left ventricular hypertrophy was seen. LVEF was around 65%. Paradoxical septal motion was observed. Diastolic function was considered normal for age. Right ventricle was normal-sized with normal systolic function. Both atria were normal-sized. Aortic valve: Aortic valve was trileaflet. There was no aortic insufficiency/stenosis. There was trace mitral/tricuspid regurgitation. There was trace pulmonary valve insufficiency. Right ventricular systolic pressure was assessed at 27 mm Hg which is considered normal. IVC was normal-sized with normal respiratory variation. There was trace pericardial effusion. Patient is a 64-year-old female with low energy/palpitations and shortness of breath for few days. Was found to have sinus tachycardia on arrival. Serial high sensitive troponin has been negative. Acute coronary syndrome is not considered. BNP and echocardiogram findings are against any heart failure. Patient is found to have different electrolyte abnormalities and mild abnormal LFT. Does have baseline alcohol abuse which could have contributed to the clinical picture. It is of note that she also has history of adrenal nodule. Generalized weakness Palpitation History of SVT/NSVT Obesity, morbid Alcohol abuse Hypothyroidism, history of Adrenal Nodule Gout Hyponatremia Hypokalemia Abnormal LFT [place] Cardiac suggestion for management: Manage on telemetry Follow-up electrolytes and kidney function tests and correct abnormalities. Keep potassium above 4 and magnesium above 2 Potassium and magnesium supplementation Rule out alcohol withdrawal (history of alcohol abuse). Lifestyle and risk factor modification is advised. Patient was advised to stop drinking alcohol Evaluation and management of abnormal LFT as per primary team shelter monitor can be arranged as outpatient Further evaluation and management depends on the above and clinical course Cardiac chawla, can be followed as outpatient A total of 55 minutes was spent reviewing the patient record, examining the pat ient, making a diagnostic and therapeutic plan, discussing this plan with medical personnel, following up on diagnostic studies and following the patient for clinical stability excluding any and all procedures. At least 50% of this time was spent in direct, [id number] contact. Thank you for allowing me to participate in this patient's care. Further recommendations will depend on patient's clinical course. Please do not hesitate to contact me if you have any questions or concerns. This medical document was created using electronic medical record system with [employer] dictation system. Although this document has been carefully reviewed, there may still be some phonetic and typographical errors. These areas are purely typographical due to the imperfection of the software programs, and do not reflect any compromise in the patient's medical care. Plan discussed with: Patient, Other (nurse) USAMA LOREDO MD May 04, 2025 08:08
[2025-05-04 09:03] LABS: Hemoglobin 15.2 g/dL (12.2-16.2); Mean Corpuscular Volume 103.9 fL (80.0-100.0)
[2025-05-04 09:05] LABS: Hematocrit 43.8 % (36.0-46.0); Mean Corpuscular Hemoglobin 35.9 pg (28.0-32.0); Nucleated Red Blood Cells % 0.3 %
[2025-05-04 09:30] VITALS: BP 102/71; PULSE 61; RESP 18; TEMP 97.2; O2SAT 93
[2025-05-04] MEDS: THIAMINE 100mg/ml INJ (200mg/2ml VIAL) IV SCH (10:08)
[2025-05-04] MEDS: MAGNESIUM OXIDE 400 MG TAB PO SCH (10:09)
[2025-05-04] MEDS: ALLOPURINOL 100 MG TAB PO SCH (10:09)
[2025-05-04] MEDS: FOLIC ACID 1 MG TAB PO SCH (10:09)
[2025-05-04 12:30] VITALS: BP 111/82; PULSE 61; RESP 18; TEMP 97.8; O2SAT 95
--- NOTE | 2025-05-04 12:43 | DVHDS2 ---
Discharge Summary Date of Admission May 02, 2025 at 09:54 Date of Discharge: May 04, 2025 Labs/Diagnostic Data: Laboratory Results Test 05/04/25 06:46 05/03/25 12:30 05/02/25 10:35 05/02/25 06:44 White Blood Count 6.0 10^3/uL (4.4-10.8) Red Blood Count 4.21 10^6/uL (4.0-5.20) Hemoglobin 15.2 g/dL (12.2-16.2) Hematocrit 43.8 % (36.0-46.0) Mean Corpuscular Volume 103.9 fL (80.0-100.0) Mean Corpuscular Hemoglobin 35.9 pg (28.0-32.0) Mean Corpuscular Hemoglobin Concent 34.6 g/dL (32.0-36.0) Red Cell Distribution Width 13.9 % (11.8-14.3) Platelet Count 299 10^3/uL (140-450) Mean Platelet Volume 7.1 fL (6.9-10.8) Neutrophils (%) (Auto) 71.8 % (37.0-80.0) Lymphocytes (%) (Auto) 16.8 % (10.0-50.0) Monocytes (%) (Auto) 5.1 % (0.0-12.0) Eosinophils (%) (Auto) 5.6 % (0.0-7.0) Basophils (%) (Auto) 0.7 % (0.0-2.0) Neutrophils # (Auto) 4.3 10 ^3/uL (1.6-8.6) Lymphocytes # (Auto) 1.0 10 ^3/uL (0.4-5.4) Monocytes # (Auto) 0.3 10 ^3/uL (0-1.3) Eosinophils # (Auto) 0.3 10 ^3/uL (0-0.8) Basophils # (Auto) 0 10 ^3/uL (0-0.2) Nucleated Red Blood Cells 0.3 % Sodium Level 133 mmol/L (136-145) Potassium Level 4.2 mmol/L (3.5-5.1) Chloride Level 100 mmol/L (98-107) Carbon Dioxide Level 23 mmol/L (20-31) Anion Gap 10 (5-15) Blood Urea Nitrogen 7 mg/dL (9-23) Creatinine 0.65 mg/dL (0.550-1.02) Glomerular Filtration Rate Calc 98 mL/min (>90) BUN/Creatinine Ratio 10.8 (10.0-20.0) Serum Glucose 110 mg/dL (74-106) Calcium Level 9.5 mg/dL (8.7-10.4) Magnesium Level 2.2 mg/dL (1.6-2.6) Total Bilirubin 1.3 mg/dL (0.2-1.0) Aspartate Amino Transferase (AST) 155 U/L (13-40) Alanine Aminotransferase (ALT) 116 U/L (7-40) Alkaline Phosphatase 121 U/L (46-116) Total Protein 6.9 g/dL (5.7-8.2) Albumin 4.4 g/dL (3.2-4.8) Urine Opiates Screen Neg (NEGATIVE) Urine Fentanyl Screen Neg (NEGATIVE) Urine Barbiturates Screen Neg (NEGATIVE) Urine Phencyclidine Screen Neg (NEGATIVE) Urine Amphetamines Screen Neg (NEGATIVE) Urine Benzodiazepines Screen Neg (NEGATIVE) Urine Cocaine Screen Neg (NEGATIVE) Urine Cannabinoids Screen Neg (NEGATIVE) Troponin I High Sensitivity 3 ng/L (</=34) D-Dimer, Quantitative 0.27 mg/L FEU (0.0-0.49) Phosphorus Level 4.0 mg/dL (2.4-5.1) B-Type Natriuretic Peptide 24.13 pg/mL (0-100) Thyroid Stimulating Hormone (TSH) 3.08 uIU/mL (0.55-4.78) Test 05/02/25 06:30 Urine Color Yellow (Yellow) Urine Clarity Hazy (Clear) Urine pH 6.0 (5.0-9.0) Urine Specific [place] 1.021 (1.001-1.035) Urine Protein Trace (Negative) Urine Ketones Trace (Negative) Urine Blood Negative /uL (Negative) Urine Nitrite Negative (Negative) Urine Bilirubin Negative (Negative) Urine Urobilinogen 2 mg/dL (Negative) Urine Leukocyte Esterase Trace /uL (Negative) Urine RBC 1 /hpf (0 - 4) Urine Microscopic WBC 5 /HPF (0-5) Urine Squamous Epithelial Cells Few /hpf (<5) Urine Bacteria Many /hpf (None Seen) Urine Glucose Normal mg/dL (Normal) Other Laboratory Tests 05/04/25 06:46 Brief Hx & Hospital Course: see dictated note Condition at Discharge: Fair Final Diagnosis/Problems List svt Discharge Disposition: Home Discharge Instruct/Medications Diet: Cardiac 2g Na,low cholest Activity: No Restrictions, As Tolerated Follow Up/Referral: fu with dr Blackman in 1 wk Medications: resume home meds Scheduled Allopurinol (Allopurinol), 100 MG PO BID, (Reported) Amlodipine Besylate (Amlodipine Besylate), 10 MG PO DAILY, (Reported) Aspirin (Aspirin), 81 MG PO DAILY, (Reported) Calcium Acetate (Phosphate Bin (Calcium Acetate), 600 MG PO DAILY, (Reported) Diphenhydramine Hcl (Banophen), 50 MG PO BID, (Reported) Folic Acid (Folic Acid), 0.4 MG PO DAILY, (Reported) Hydrochlorothiazide (Hydrochlorothiazide), 50 MG PO DAILY, (Reported) Levothyroxine Sodium (Levothyroxine Sodium), 50 MCG PO DAILY, (Reported) Lisinopril (Lisinopril), 40 MG PO DAILY, (Reported) Magnesium Oxide (Magnesium Oxide), 1 TAB PO DAILY, (Reported) Metoprolol Tartrate (Metoprolol Tartrate), 50 MG PO BID, (Reported) Naltrexone HCl (Naltrexone Hydrochloride), 50 MG PO DAILY, (Reported) Paroxetine (Paxil Tablet), 40 MG PO DAILY, (Reported) Potassium Chloride (Potassium Chloride Cr), 99 MG PO DAILY, (Reported) Miscellaneous Medications Hctz (Hydrochlorothiazide), 50 MG PO, (Reported) Nicotine Polacrilex (Nicotine Polacrilex), 4 MG MT, (Reported) Vitamin B12 (Vitamin B-12), 1,000 MCG PO, (Reported) Yeast (S. Boulardii)(S. Cerevi (Probiotic), 250 MG PO, (Reported) Discontinued Medications Calcium Acetate (Phosphate Bin (Calcium Acetate), 600 MG PO DAILY, (Reported) Discharge Statement: "Patient was advised to return to the ER or call 911 if any headaches, dizziness, shortness of breath, chest pain, abdominal pain, bleeding, fevers, or worsening of medical condition. Patient was counseled about treatment plan, medications, possible side effects, patientverbalized understanding. All questions were answered to the best of my ability. This discharge took greater then 30 minutes in planning, reviewing documentation, counseling the patient, and discussing with other team members." ASSESSMENT ASSESSMENT Assessment svt Date of Service: May 04, 2025 Billing Provider: FREDERICK JIMENEZ MD Common Visit Codes: 66843-MCI/OBS DISCH DAY >30min FREDERICK JIMENEZ MD May 04, 2025 12:42
--- NOTE | 2025-05-04 13:09 | DVHDS ---
DATE OF DISCHARGE: 05/04/2025 HISTORY OF PRESENT ILLNESS: The patient is a 64-year-old lady who was admitted with history of palpitations and not feeling well. The patient has a history of hypertension, thyroid disease, SVT. HOSPITAL COURSE: The patient had a chest x-ray that showed no acute disease. The patient had abdominal CT that showed evidence of cholelithiasis along with small bilateral adrenal nodules. The patient had elevated LFTs. She has history of alcohol abuse. Her tox screen was negative. The patient's TSH was normal. She was seen in Cardiology consult by Dr. Peguero. Echocardiogram done showed ejection fraction of 65%. The patient will now be discharged home. I have discussed her discharge plan with Dr. Peguero, who will follow her liver function tests as an outpatient. The patient has been strongly advised to stop alcohol and tobacco abuse. FINAL DIAGNOSES: * Palpitations, questionable SVT. * Hypertension. * Gout. * Tobacco abuse. * Alcohol abuse. * Obesity. * Hypothyroidism. * Transaminitis. * Hypokalemia. Time spent in discharge planning and review of plan with the patient, nursing, and showroom sales consultant was 39 minutes. MD ARABELLA Morales/ALEX TID: [id number] RECEIPT: [id number]
[2025-05-04 14:38] VITALS: BP 111/82; PULSE 61; RESP 18; TEMP 97.8; O2SAT 95
--- NOTE | 2025-05-10 07:51 | ECG ---
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
== END 2025-05-04 16:20 | disposition home or self-care (01) | DRG 201 ==
LOC: ER 05:57 → OVERFLOW 09:54 → TELE-WESTW 11:15
PROVIDERS: ADMIT Internal Medicine; ATTEND Internal Medicine
DX: I47.10 Supraventricular tachycardia, unspecified (principal); K76.89 Other specified diseases of liver; E03.9 Hypothyroidism, unspecified; E66.01 Morbid (severe) obesity due to excess calories; I10 Essential (primary) hypertension; F10.10 Alcohol abuse, uncomplicated; E87.6 Hypokalemia; Z68.30 Body mass index [BMI] 30.0-30.9, adult; K80.20 Calculus of gallbladder without cholecystitis without obstruction; F41.9 Anxiety disorder, unspecified; M17.0 Bilateral primary osteoarthritis of knee; M10.9 Gout, unspecified; I25.10 Atherosclerotic heart disease of native coronary artery without angina pectoris; F17.210 Nicotine dependence, cigarettes, uncomplicated; Z79.82 Long term (current) use of aspirin; Z79.899 Other long term (current) drug therapy; Z88.8 Allergy status to other drugs, medicaments and biological substances
CPT/HCPCS: 36415; 71045; 74177; 80048; 80053; 80307; 81001; 83735; 83880; 84100; 84443; 84484; 85025; 85379; 93005; 93306; 99291; 99292; G0378; J3480

== ENCOUNTER 2025-05-05 13:38 | Emergency (ER) | payer MEDICAID ==
[~2025-05-05] VITALS: Ht 177.8 cm; Wt 97.0 kg
[~2025-05-05 13:38] MED LIST changes: +ALLO100T PO; +AMLO1TAB22 PO; +ASPI325T6 PO; +CALC667C PO; +CYA100I PO; +HYDR25TA4 PO; +HYDR25TA5 PO; +LEVO50TA7 PO; +LISI40TA16 PO; +NICO4GUM MT; +PAR20T PO; +POTA-36 PO; +SACC1CAP3 PO
--- NOTE | 2025-05-05 14:13 | ED.PDOC ---
History of Present Illness HPI Comments This is a 64-year-old female who comes in with chief complaint of right leg numbness. The patient states that she was admitted to [facility] on Saturday for heart palpitations and an elevated blood pressure. The patient now states that she was discharged yesterday and last night she developed some numbness to the right lower extremity. The patient denies any trauma. She denies any cardiac symptoms today. There has been no fever or chills. Time Seen by MD: 13:43 Reviewed Notes: Nurses Notes, Medications, Allergies (Allergies listed above) Allergies: Coded Allergies: Acamprosate (Verified Allergy, Severe, 07/16/23) causes welts to patient's skin, per pt Home Meds Reported Medications Nicotine Polacrilex (Nicotine Polacrilex) 4 Mg Gum, 4 MG MT, GUM 05/02/25 Potassium Chloride (POTASSIUM CHLORIDE CR) 10 Meq Tb, 99 MG PO DAILY, TAB 05/02/25 Vitamin B12 (Vitamin B-12) 1,000 Mcg/1 Ml Ij, 1000 MCG PO, INJ 05/02/25 Yeast (S. Boulardii)(S. Cerevi (Probiotic) 250 Mg Cap, 250 MG PO, CAP 05/02/25 Calcium Acetate (Phosphate Bin (Calcium Acetate) 667 Mg Cap, 600 MG PO DAILY for 30 Days, MG 05/02/25 Levothyroxine Sodium (Levothyroxine Sodium) 50 Mcg Tab, 50 MCG PO DAILY, TAB 05/02/25 Aspirin (Aspirin) 325 Mg Tab, 81 MG PO DAILY for 30 Days, MG 05/02/25 Amlodipine Besylate (Amlodipine Besylate) 5 Mg Tab, 10 MG PO DAILY for 30 Days, MG 05/02/25 Hydrochlorothiazide (Hydrochlorothiazide) 25 Mg Tab, 50 MG PO DAILY for 30 Days, MG 05/02/25 Hctz (Hydrochlorothiazide) 25 Mg Tab, 50 MG PO, TAB 05/02/25 Lisinopril (Lisinopril) 40 Mg Tab, 40 MG PO DAILY for 30 Days, MG 05/02/25 Paroxetine (PAXIL TABLET) 20 Mg Tb, 40 MG PO DAILY, TAB 05/02/25 Allopurinol (Allopurinol) 100 Mg Tab, 100 MG PO BID for 30 Days, MG 05/02/25 Diphenhydramine Hcl (BANOPHEN) 50 Mg Cap, 50 MG PO BID for ITCHING, CAP 07/12/23 Naltrexone HCl (Naltrexone Hydrochloride) 50 Mg Tab, 50 MG PO DAILY for ALCOHOLISM, TAB 07/12/23 Folic Acid (Folic Acid) 1 Mg Tab, 0.4 MG PO DAILY for SUPPLEMENT, TAB 07/12/23 Magnesium Oxide (MAGNESIUM OXIDE) 400 Mg Tab, 1 TAB PO DAILY for SUPPLEMENT, #30 TAB 5 Refills 07/12/23 Metoprolol Tartrate (Metoprolol Tartrate) 50 Mg Tab, 50 MG PO BID for HTN for 30 Days, MG 07/12/23 Discontinued Reported Medications Calcium Acetate (Phosphate Bin (Calcium Acetate) 667 Mg Cap, 600 MG PO DAILY for 30 Days, MG 05/02/25 Information Source: Patient Mode of Arrival: Ambulatory (The patient uses a walker) Severity: Mild Timing: Hours Duration: Since onset Prehospital treatment: None Location: Right upper leg numbness Past Medical History PAST MEDICAL HISTORY: HTN, Liver, Thyroid Surgical History: BTL, , Denies all surgeries MEDICAL ORDERLY History: Denies all MEDICAL ORDERLY Hx Family History Family History: Unknown, Family hx of heart severino Social History Smoker: Cigarettes Alcohol: Occasionally Drugs: Denies Drug Use Lives In: Home Constitutional: denies: chills, diaphoresis, fatigue, fever, malaise, sweats, weakness, others EENTM: denies: blurred vision, double vision, ear bleeding, ear discharge, ear drainage, ear pain, ear ringing, eye pain, eye redness, hearing loss, mouth pain, mouth swelling, nasal discharge, nose bleeding, nose congestion, nose pain, photophobia, tearing, throat pain, throat swelling, voice changes, others Respiratory: denies: cough, hemoptysis, orthopnea, SOB at rest, shortness of breath, SOB with excertion, stridor, wheezing, others Cardiovascular: denies: chest pain, dizzy spells, diaphoresis, Dyspnea on exertion, edema, irregular heart beat, left arm pain, lightheadedness, palpitations, PND, syncope, others Gastrointestinal: denies: abdomen distended, abdominal pain, blood streaked bowels, constipated, diarrhea, dysphagia, difficulty swallowing, hematemesis, melena, nausea, poor appetite, poor fluid intake, rectal bleeding, rectal pain, vomiting, others Genitourinary: denies: abnormal vagina bleeding, burning, dyspareunia, dysuria, flank pain, frequency, hematuria, incontinence, pain, , vagina discharge, urgency, others Neurological: denies: dizziness, fainting, headache, left sided numbness, left sided weakness, numbness, paresthesia, pre-existing deficit, right sided numbness, right sided weakness, seizure, speech problems, tingling, tremors, weakness, others Musculoskeletal: denies: back pain, gout, joint pain, joint swelling, muscle pain, muscle stiffness, neck pain, others Integumetry: reports: others (Right leg numbness); denies: bruises, change in color, change in hair/nails, dryness, laceration, lesions, lumps, rash, wounds Allergic/Immunocompromised: denies: Difficulty Healing, Frequent Infections, Hives, Itching, others Hematologic/Lymphatic: denies: anemia, blood clots, easy bleeding, easy bruising, swollen glands, others Endocrine: denies: excessive hunger, excessive sweating, excessive thirst, excessive urination, flushing, intolerance to cold, intolerance to heat, unexplained weight gain, unexplained weight loss, others Psychiatric: denies: anxiety, bipolar disorder, depression, hopeless, panic disorder, schizophrenia, sleepless, suicidal, others Physical Exam General Appearance: Mild Distress HEENT: Normal ENT Inspection, Pharynx Normal, TMs Normal Neck: Full Range of Motion, Non-Tender, Normal, Normal Inspection Respiratory: Chest Non-Tender, Lungs Clear, No Accessory Muscle Use, No Respiratory Distress, Normal Breath Sounds Cardiovascular: No Edema, No JVD, No Murmur, No Gallop, Normal Peripheral Pulses, Regular Rate/Rhythm Breast Exam: Deferred Gastrointestinal: No Organomegaly, Non Tender, No Pulsatile Mass, Normal Bowel Sounds, Soft Genitalia: Deferred Pelvic: Deferred Rectal: Deferred Extremities: No calf tenderness, Normal capillary refill, No pedal edema Musculoskeletal : Apperance: Normal Neurologic: Alert, electro mechanical designer II-XII nml as Tested, No Motor Deficits, Normal Affect, Normal Mood, No Sensory Deficits Cerebellar Function: Normal Reflexes: Normal Skin: Dry, Normal Color, Warm Lymphatic: No Adenopathy Was a procedure done? Was a procedure done?: No Differential Dx Considerations may include: DVT, generalized weakness, electrolyte imbalance X-Ray, Labs, Meds, VS Vital Signs Date Time Temp Pulse Resp B/P (MAP) Pulse Ox O2 Delivery O2 Flow Rate FiO2 05/05/25 13:40 98.2 96 18 108/77 99 98.2 Ultrasound to the right lower extremity is negative for DVT The patient is being discharged The patient will return to the emergency department's condition worsens The patient understands and agrees with the management. Images Reviewed?: Images reviewed and evaluated by me Time of 1ST Reevaluation: 14:13 Reevaluation 1ST: Improved Patient Education/Counseling: Diagnosis, Treatment, Prognosis, Need For Follow Up Family Education/Counseling: No Family Present SEPSIS Sepsis Screen Physician Orders Rt Lower Dvt (05/05/25 14:10) Vital Signs Date Time Temp Pulse Resp B/P (MAP) Pulse Ox O2 Delivery O2 Flow Rate FiO2 05/05/25 13:40 98.2 96 18 108/77 99 98.2 Departure 1 Departure Time of Disposition: 15:14 Impression: Primary Impression: Right leg pain Disposition: 01 HOME / SELF CARE / HOMELESS Condition: Fair Discharged With: Self Critical Care Note Critical Care Time?: No Stability Stability form required: No Heart Score Heart Score: Heart Score Response (Comments) Value History N/A 0 EKG N/A 0 Age N/A 0 Risk Factors N/A 0 Troponin N/A 0 Total 0 ALEE REYNOLDS MD May 05, 2025 14:13
--- NOTE | 2025-05-05 15:06 | DVH ---
Right lower extremity venous duplex Clinical History: right leg numbness and pain Comparison: None Technique: Duplex Doppler evaluation of the deep venous system of the right lower extremity from the common femo ral vein to the popliteal vein including color Doppler and spectral/pulsed waveform analysis was perf ormed. Findings: The common femoral vein demonstrates appropriate compressibility and waveform variability. There is compressibility/patency of the great saphenous vein at the proximal thigh. The femoral vein demonstrates appropriate compressibility and waveform variability. The deep femoral vein demonstrates appropriate compressibility and waveform variability. The popliteal vein demonstrates appropriate compressibility and waveform variability. There is normal compressibility at the tibioperoneal trunk. Impression: No right femoropopliteal venous thrombosis.
[2025-05-05 16:15] VITALS: BP 132/83; PULSE 80; RESP 18; TEMP 98.2; O2SAT 95
== END 2025-05-05 16:19 | disposition home or self-care (01) ==
LOC: ER 13:38
DX: M79.604 Pain in right leg (principal); F17.210 Nicotine dependence, cigarettes, uncomplicated; F10.90 Alcohol use, unspecified, uncomplicated; I10 Essential (primary) hypertension; Z98.51 Tubal ligation status; Z79.899 Other long term (current) drug therapy; Z98.890 Other specified postprocedural states; Z91.09 Other allergy status, other than to drugs and biological substances; Y90.9 Presence of alcohol in blood, level not specified
CPT/HCPCS: 93971